=== PATIENT | male | born 1960 | race Two or more races ===

== ENCOUNTER 2022-11-07 10:34 | Emergency (ER) | payer MEDICAID, OTHER ==
[~2022-11-07] VITALS: Ht 180.3 cm; Wt 81.0 kg
[2022-11-07 10:47] VITALS: BP 124/72; PULSE 121; RESP 18; O2SAT 100
[2022-11-07] MEDS ORDERED: IOHEXOL 300 MG/ML 100ML BOTTLE IJ ONE (11:39)
[2022-11-07] MEDS ORDERED: HYDROcodone-ACET 10/325MG TAB PO ONE (11:45)
[2022-11-07] MEDS ORDERED: CEPH250C PO (12:20)
[2022-11-07] MEDS ORDERED: CLIN300C70 PO (12:20)
[2022-11-07] MEDS ORDERED: IBU600T PO (12:21)
== END 2022-11-07 18:50 | disposition home or self-care (01) ==
LOC: ER 10:34 → EDBD 10:34 → ER 18:50
DX: S50.12XA Contusion of left forearm, initial encounter (principal); S80.01XA Contusion of right knee, initial encounter; S80.02XA Contusion of left knee, initial encounter; S80.12XA Contusion of left lower leg, initial encounter; R51.9 Headache, unspecified; V43.52XA Car driver injured in collision with other type car in traffic accident, initial encounter; Y93.89 Activity, other specified; Y92.488 Other paved roadways as the place of occurrence of the external cause; Y99.8 Other external cause status
CPT/HCPCS: 70450; 71260; 72125; 73080; 73562; 74177; 99285; Q9967